=== PATIENT | female | born 1955 | race Caucasian/White ===

== ENCOUNTER 2016-12-08 12:32 | Outpatient (CLI) | payer MEDICARE, OTHER ==
[2016-12-08 13:14] LABS: #Basophils 0.1 thou/uL (0.0-0.2); #Eosinphils 0.4 thou/uL (0.0-0.7); #Lymphocytes 3.1 thou/uL (1.20-3.40); #Monocytes 0.5 thou/uL (0.11-0.59); #Neutrophils 4.9 thou/uL (1.40-6.50); %Basophils 1.2 % (0.0-1.0); %Eosinophils 4.9 % (0.0-10.0); %Lymphocytes 34.5 % (21.0-51.0); %Monocytes 5.4 % (0.0-10.0); Hemoglobin 14.9 g/dL (12.0-16.0); Mean Corpuscular HGB CONC 32.4 g/dL (32.0-36.0); Mean Corpuscular Hemoglobin 29.2 pg (27.0-31.0); Mean Corpuscular Volume 90.1 fl (81.0-99.0); Mean Platelet Volume 7.8 fL (7.4-10.4); Platelet Count 295 thou/uL (130-400); RBC Distribution Width 12.6 % (11.5-14.5)
[2016-12-08 13:24] LABS: ALT (SGPT) 22 U/L (0-55); AST (SGOT) 16 U/L (5-34); Albumin 4.3 g/dL (3.5-5.0); Alkaline Phosphatase 79 U/L (40-150); Anion Gap 12 mmol/L (10-20); BUN (Urea Nitrogen) 22 mg/dL (9.8-20.1); Bilirubin, Total 0.6 mg/dL (0.2-1.2); Calc. Creatinine Clearance 0 mL/min (70-130); Calcium 9.8 mg/dL (7.8-10.44); Carbon Dioxide 30 mmol/L (22-29); Cardiac Risk 4.9 (Less than 4.5); Chloride 102 mmol/L (98-107); Cholesterol 214 mg/dL (< 200 Desired); Estimated GFR-MDRD 75; Globulin 3.2 g/dL (2.4-3.5); Glucose 94 mg/dL (70-105); HDL Cholesterol 44 mg/dL (>60 Neg Risk); LDL Cholesterol, Calculated 121 mg/dL; Potassium 4.8 mmol/L (3.5-5.1); Protein, Total 7.5 g/dL (6.0-8.3); Sodium 139 mmol/L (136-145); Triglycerides 247 mg/dL (Less than 150)
[2016-12-08 13:32] LABS: Hemoglobin A1c 5.4 % (4.0-6.0)
[2016-12-08 14:05] LABS: Vitamin D, 25 Hydroxy 41.5 ng/mL (> 30.0)
[2016-12-08 18:17] LABS: Ferritin 128.45 ng/mL (10-291)
== END 2016-12-08 12:33 ==
LOC: HPCALD 12:32
PROVIDERS: ATTEND Family Medicine
DX: E53.8 Deficiency of other specified B group vitamins (principal); E55.9 Vitamin D deficiency, unspecified; E56.9 Vitamin deficiency, unspecified; E11.9 Type 2 diabetes mellitus without complications; I10 Essential (primary) hypertension; R53.83 Other fatigue
CPT/HCPCS: 80053; 80061; 82306; 82607; 82728; 83036; 84443; 85025

== ENCOUNTER 2016-12-09 09:53 | Outpatient (CLI) | payer MEDICARE, OTHER | END 2016-12-09 09:54 | LOC: HPCALD 09:53 | PROVIDERS: ATTEND Family Medicine | DX: E56.9 Vitamin deficiency, unspecified (principal) | CPT/HCPCS: 84425 ==

== ENCOUNTER 2017-02-28 15:20 | Outpatient (CLI) | payer MEDICARE, MEDICAID ==
--- NOTE | 2017-03-01 07:27 | RAD ---
RIGHT HUMERUS TWO VIEWS: Date: 02-28-17 FINDINGS: No fracture or acute bony change was seen. The humerus appears intact. Some bony spurring is suggest ed involving the coronoid process of the ulna. IMPRESSION: No acute bony finding. POS: HOME
--- NOTE | 2017-03-01 07:28 | RAD ---
RIGHT SHOULDER THREE VIEWS: Date: 02-28-17 FINDINGS: No fracture, dislocation, or AC joint widening was seen. The visible adjacent ribs showed no acute c hange. The scapula was unremarkable. IMPRESSION: No acute thoracic findings. POS: HOME
== END 2017-02-28 15:21 | disposition home or self-care (01) ==
LOC: BURRAD 15:20
PROVIDERS: ATTEND Family Medicine
DX: M25.511 Pain in right shoulder (principal); M79.601 Pain in right arm

== ENCOUNTER 2017-05-05 09:49 | Outpatient (CLI) | payer MEDICARE, MEDICAID ==
--- NOTE | 2017-05-05 22:11 | CT ---
CT OF THE RIGHT SHOULDER 05/05/[address] of the shoulder was performed for evaluation of shoulder pain. Axial thin slices were obta ined, then multiplanar reconstructions through the shoulder joint were done. No fracture, dislocation, or area of bony destruction was seen. The glenohumeral joint was unremarka ble. The scapula appears intact. The ADC joint is not wide. There is a very tiny calcification seen at the top of the greater tubercle of the humerus near where the supraspinatus inserts. I cannot ru le out some tendinous calcification in this location. The distance between the top of the humeral he ad and the acromion, seems slightly reduced which could potentially impinge upon the supraspinatus t endon as it passes by. I see no osteophytes projecting from the AC joint to cause impingement in and of themselves. The soft tissues that surround the shoulder were unremarkable. The visible portions of the right lung appear normal. IMPRESSION: 1. No acute bony findings. 2. Possible tiny calcification near the insertion of the supraspinatus tendon. Mild calcific te ndinitis is possible. 3. Slightly narrow space for the supraspinatus as it passes between the humeral head and acromi on. POS: HOME
== END 2017-05-05 09:50 | disposition home or self-care (01) ==
LOC: BURCT 09:49
PROVIDERS: ATTEND Family Medicine
DX: M25.511 Pain in right shoulder (principal); M75.31 Calcific tendinitis of right shoulder

== ENCOUNTER 2017-11-19 19:15 | Emergency (ER) | payer MEDICARE, OTHER ==
[2017-11-19] MEDS ORDERED: diphenhydrAMINE 12.5 MG/5 ML UDCUP ONE (19:38)
[2017-11-19] MEDS ORDERED: Ondansetron HCl/PF 4 MG/2 ML Vial ONE (19:38)
[2017-11-19] MEDS ORDERED: Morphine 4 MG/ML Carpuject ONE (19:38)
[2017-11-19] MEDS ORDERED: diphenhydrAMINE 50 MG/ML VIAL ONE (19:39)
[2017-11-19 19:47] LABS: PTT 26.9 SEC (22.9-36.1); Prothrombin Time 13.2 SEC (12.0-14.7)
[2017-11-19 19:50] LABS: Hemoglobin 14.6 g/dL (12.0-16.0); Mean Corpuscular HGB CONC 37.4 g/dL (32.0-36.0); Mean Corpuscular Hemoglobin 32.1 pg (27.0-31.0); Mean Corpuscular Volume 85.8 fl (81.0-99.0); Mean Platelet Volume 8.7 fL (7.4-10.4); Platelet Count 293 thou/uL (130-400); RBC Distribution Width 11.4 % (11.5-14.5); Red Blood Cell (RBC) Count 4.56 mill/uL (4.20-5.40); White Blood Cell (WBC) Count 11.3 thou/uL (4.8-10.8)
[2017-11-19 19:57] LABS: ALT (SGPT) 28 U/L (8-55); AST (SGOT) 17 U/L (5-34); Albumin 3.9 g/dL (3.5-5.0); Alkaline Phosphatase 53 U/L (40-150); Anion Gap 16 mmol/L (10-20); BUN (Urea Nitrogen) 21 mg/dL (9.8-20.1); Bilirubin, Total 0.4 mg/dL (0.2-1.2); Calc. Creatinine Clearance 0 mL/min (70-130); Calcium 9.4 mg/dL (7.8-10.44); Carbon Dioxide 21 mmol/L (22-29); Chloride 105 mmol/L (98-107); Estimated GFR-MDRD 67; Globulin 2.9 g/dL (2.4-3.5); Glucose 112 mg/dL (70-105); Protein, Total 6.8 g/dL (6.0-8.3); Sodium 138 mmol/L (136-145)
[2017-11-19 19:58] LABS: CKMB 1.5 ng/mL (0-6.6); Troponin I Less than 0.010 ng/mL (< 0.028)
[2017-11-19 20:02] LABS: #Basophils 0.2 thou/uL (0.0-0.2); #Eosinphils 0.4 thou/uL (0.0-0.7); #Lymphocytes 3.9 thou/uL (1.20-3.40); #Monocytes 0.8 thou/uL (0.11-0.59); #Neutrophils 6.4 thou/uL (1.40-6.50); %Basophils 1.4 % (0.0-1.0); %Eosinophils 3.3 % (0.0-10.0); %Lymphocytes 33.2 % (21.0-51.0); %Monocytes 6.9 % (0.0-10.0); %Neutrophils 55.3 % (42.0-75.0); PLT Morphology Comment Appears Adequate; RBC Morphology Normal
[2017-11-19 20:04] LABS: MDiff Complete? YES; Manual Diff?? NO
--- NOTE | 2017-11-19 23:24 | RAD ---
PORTABLE CHEST 11/19/17 An AP portable film at 1930 is compared with an 03/31/16 study. The heart is normal in size and the lungs are clear. No infiltrate or effusion was seen. There is no vascular congestion or edema. The mediastinum appears normal. IMPRESSION: No acute finding. POS: HOME
== END 2017-11-19 22:48 ==
LOC: BURERS 19:15
DX: I95.9 Hypotension, unspecified (principal); R07.2 Precordial pain; R00.1 Bradycardia, unspecified; I11.0 Hypertensive heart disease with heart failure; I50.9 Heart failure, unspecified; J44.9 Chronic obstructive pulmonary disease, unspecified; K21.9 Gastro-esophageal reflux disease without esophagitis; F32.9 Major depressive disorder, single episode, unspecified; F41.9 Anxiety disorder, unspecified; Z87.891 Personal history of nicotine dependence; Z79.82 Long term (current) use of aspirin; Z79.899 Other long term (current) drug therapy
CPT/HCPCS: 36415; 71045; 80053; 82553; 83880; 84484; 85025; 85610; 85730; 93005; 96361; 96374; J1200; J2270; J2405

== ENCOUNTER 2019-10-08 14:30 | Outpatient (CLI) | payer MEDICARE, MEDICAID ==
--- NOTE | 2019-10-08 15:33 | RAD ---
THORACIC SPINE THREE VIEWS: History: Mid back pain. FINDINGS: Vertebral bodies are normal in height. Prominent osteophytes are seen along the course of the spine. Pedicles are intact. IMPRESSION: Moderate arthritic change of the spine. POS: [facility]
--- NOTE | 2019-10-08 16:15 | RAD ---
LUMBAR SPINE SERIES THREE VIEWS: History: Back pain and right sided pain. FINDINGS: The vertebral bodies are normal in height. There are degenerative osteophytes along the course of the spine. There is some mild disc narrowing at L1-2 and minimal changes at the L2-3 level. Prominent de generative facet changes are present. Pedicles are intact. In addition, there is some moderate disc n arrowing at L5-S1. IMPRESSION: 1. Moderate arthritic change of the spine. POS: [facility]
== END 2019-10-08 14:31 | disposition home or self-care (01) ==
LOC: BURRAD 14:30
PROVIDERS: ATTEND Family Medicine
DX: M54.6 Pain in thoracic spine (principal); M46.94 Unspecified inflammatory spondylopathy, thoracic region; M46.96 Unspecified inflammatory spondylopathy, lumbar region
CPT/HCPCS: 72072; 72100